=== PATIENT | male | born 1960 | race Caucasian/White ===

== ENCOUNTER → 2016-12-27 | Day surgery (SDC) | payer BC ==
[~2016-12-27] MED LIST: ASPIR 8181 MG PO; AUGMENTIN 500-1 EACH PO; B-121000 MCG PO; EFFEXOR XR75 MG PO; FOLIC ACID1 MG PO; KLONOPIN0.5 MG PO; LIPITOR80 MG PO; METHADONE HCL10 MG PO; NEURONTIN600 MG PO; PRINIVIL20 MG PO; PROTONIX40 MG PO; SYNTHROID100 MCG PO; TOPROL XL50 MG PO
== END | disposition home or self-care (01) ==
LOC: SDCH 07:30
DX: Z53.9 Procedure and treatment not carried out, unspecified reason (principal)